=== PATIENT | male | born 1955 | race Caucasian/White ===

== ENCOUNTER → 2020-07-03 14:52 | Outpatient (CLI) | payer MEDICARE, SELFPAY ==
--- NOTE | 2020-07-03 15:15 | US_ITS ---
STUDY: RENAL ULTRASOUND - COMPLETE REASON FOR EXAM: Male, 65 years old. KIDNEY STONE TECHNIQUE: Ultrasound evaluation of the kidneys was performed with real-time and static gaona-scale imaging. COMPARISON: None. FINDINGS: RIGHT KIDNEY: Normal location of the right kidney, which is normal in size. The right kidney measures 11.5 x 4.6 x 6.0 cm. There is a normal cortex of the right kidney. The renal cortex measures 1.6 cm. There is no right renal mass or cyst. There are no right renal calculi. There is no right hydronephrosis. DISTAL RIGHT URETER: There is non-visualization of the distal right ureter. There is no demonstrated right ureterovesical junction calculus. There is no demonstrated right ureteral jet. LEFT KIDNEY: Normal location of the left kidney, which is normal in size. The left kidney is slightly lobular in contour. The left kidney measures 12.0 x 4.3 x 5.4 cm. There is a normal cortex of the left kidney. The renal cortex measures 1.5 cm. There is no left renal mass or cyst. There are no left renal calculi. There is no left hydronephrosis. DISTAL LEFT URETER: There is non-visualization of the distal left ureter. There is no demonstrated left ureterovesical junction calculus. There is no demonstrated left ureteral jet. BLADDER: The distended urinary bladder has a volume of 66 ml. There is a normal wall thickness of the distended urinary bladder. Bladder wall thickness is 3 mm. There is no demonstrated mass within the urinary bladder. There are no demonstrated bladder calculi. US/Kidney and Bladder IMPRESSION: Normal ultrasound of the kidneys and urinary bladder. Electronically Signed: Melvin Lopez MD at 17:27 EDT , Service support ,
--- NOTE | 2020-07-03 15:48 | RAD_ITS ---
STUDY: X-RAY - ABDOMEN/PELVIS REASON FOR EXAM: Male, 65 years old. h/o kidney stones -- right sided back pain TECHNIQUE: Two AP supine views of the abdomen and pelvis. COMPARISON: None. FINDINGS: Normal visualized lung bases. There is an unremarkable bowel gas pattern. There is no demonstrated free abdominal air. The visualized liver, spleen and kidneys are grossly normal in size and morphology. Normal soft tissue structures. There are mild degenerative changes of the thoracic spine. RAD/Abdomen Single View IMPRESSION: Mild degenerative changes of the visualized thoracic spine. There is no evidence of ileus or obstruction. No abnormal intra-abdominal or intrapelvic calcifications are noted. Electronically Signed: Melvin Lopez MD at 21:22 EDT , Service support ,
== END ==
DX: N20.0 Calculus of kidney (principal)
CPT/HCPCS: 74018; 76770

== ENCOUNTER 2022-03-27 09:35 | Outpatient (CLI) | payer MEDICARE, SELFPAY ==
[2022-03-27 10:22] LABS: Absolute Lymphocyte Count 2.22 X10^3/uL (0.83-4.51); Absolute Neutrophil Count 3.8 X10^3/uL (2.0-7.7); Basophil# 0.06 X10^3/uL; Basophil% 0.8 % (0-1); Eosinophil# 0.46 X10^3/uL; Eosinophils% 6.5 % (0-5); Hematocrit 45.4 % (40-54); Lymphocyte # 2.22 X10^3/ul (0.83-4.51); Lymphocyte % 31.4 % (19-41); Mean Corpuscular Hgb 31.1 pg (27.0-32.0); Mean Corpuscular Volume 94.2 fL (80-94); Mean Platelet Vol. 11.5 fl (6.2-12.0); Monocyte# 0.51 X10^3/uL; Monocyte% 7.2 % (0-10); NRBC Flagged by Analyzer 0 % (0-5); Neutrophil # 3.79 X10^3/uL (2.7-7.7); Neutrophil % 53.8 % (47-70); Platelet Count 229 K/mm3 (150-450); RBC Distribution Width CV 12.9 % (11.6-14.6); RBC Distribution Width SD 44.4 fl (35.1-43.9); Red Blood Count 4.82 M/mm3 (4.6-6.2); White Blood Count 7.1 K/mm3 (4.4-11.0)
[2022-03-27 11:00] LABS: AST(SGOT) 18 U/L (15-37); Alanine Aminotransfer ALT/SGPT 28 U/L (16-61); Albumin, Serum 3.3 g/dL (3.2-5.0); Alkaline Phosphatase 79 U/L (45-117); Anion Gap 5 (5-15); BUN 9 mg/dL (7-18); BUN/Creat Ratio 8.9 RATIO (10-20); Calcium,Total 8.9 mg/dL (8.5-10.1); Chloride 110 mmol/L (98-107); Cholesterol 212 mg/dL (200); Creatinine, Serum 1.01 mg/dL (0.70-1.30); EST Glomerular Filtration Rate 78 mL/min (>60); Est Glom Filt Rate - Afr Amer 94 mL/min (>60); Globulin 3.4 g/dL (2.2-4.2); Glucose 97 mg/dL (74-106); High Density Lipoprotein 52 mg/dL; Potassium 3.8 mmol/L (3.5-5.1); Protein, Total 6.7 g/dL (6.4-8.2); Sodium Level 141 mmol/L (136-145); Thyroid Stim Hormone (TSH) 3.56 uIU/mL (0.358-3.74); Triglycerides 122 mg/dL; Very Low Density Lipoprotein 24 mg/dL (5-40)
[2022-03-27 11:30] LABS: Vitamin D,25 Hydroxy 26.6 ng/mL
== END 2022-03-27 23:59 | disposition home or self-care (01) ==
LOC: MFPLAB 09:36
PROVIDERS: PCP Family Medicine; Referring Provider Family Medicine; Visit Provider Family Medicine
DX: Z00.00 Encounter for general adult medical examination without abnormal findings (principal); E55.9 Vitamin D deficiency, unspecified; N20.0 Calculus of kidney; Z12.5 Encounter for screening for malignant neoplasm of prostate
CPT/HCPCS: 36415; 80053; 80061; 82306; 84153; 84443; 84550; 85025; G0103

== ENCOUNTER → 2022-04-15 | Outpatient (CLI) | payer MEDICARE, SELFPAY ==
--- NOTE | 2022-04-15 12:26 | CT_ITS ---
STUDY: CT ABDOMEN AND PELVIS WITHOUT CONTRAST REASON FOR EXAM: Male, 67 years old. DIVERTICULITIS RADIATION DOSAGE (If Supplied By Facility): CTDIvol = ( 14.39 ) mGy, DLP = ( 751.59 ) mGycm TECHNIQUE: Transaxial images were obtained from the dome of the diaphragm to the symphysis pubis with oral contrast, and without intravenous contrast. Sagittal and coronal images were reconstructed. Individualized dose optimization techniques were used for this CT. COMPARISON: None. FINDINGS: The visualized lung bases are unremarkable. The visualized portions of the heart are within normal limits. Multiple hepatic cysts. No required imaging follow-up needed given high likelihood of benign nature. Diffuse hepatic steatosis. There are multiple gallstones. Normal spleen. Normal pancreas. Normal bilateral adrenal glands. Simple right renal cysts. No required imaging follow-up needed given high likelihood of benign nature. Left parapelvic renal cyst (benign). No hydronephrosis. Normal visualized stomach. Normal small intestine. There is diverticulosis, with thickening of the proximal sigmoid colon wall, and pericolonic inflammation changes consistent with acute diverticulitis. The appendix is visualized and appears normal. There is diffuse atherosclerotic calcification of the abdominal aorta, without a demonstrated aneurysm. Splenic artery aneurysm with peripheral calcification measures 1.5 cm on image 44 of series 2. Normal inferior vena cava. Normal retroperitoneum. Normal urinary bladder. There are prostatic calcifications. There is a small umbilical hernia containing fat. There are diffuse degenerative changes of the visualized lumbar spine. CT/Abdomen/Pelvis without Cont IMPRESSION: 1. Acute diverticulitis of the proximal sigmoid colon. No pneumoperitoneum or focal abscess. 2. 1.5 cm splenic artery aneurysm with peripheral calcification. Limited detail given lack of IV contrast. Spontaneous rupture for aneurysms less than 2 cm rare. Consider one-year follow-up if no risk factors, according to current guidelines. Electronically Signed: Juan Luis Berkowitz MD ([place]) at 14:49 EDT Reading Location ID and State: , Service support ,
== END | disposition home or self-care (01) ==
PROVIDERS: PCP Family Medicine; Referring Provider Family Medicine; Visit Provider Family Medicine
DX: K57.92 Diverticulitis of intestine, part unspecified, without perforation or abscess without bleeding (principal)
CPT/HCPCS: 36415; 74176; 80053; 85025

== ENCOUNTER → 2022-04-15 | Outpatient (CLI) | payer MEDICARE, SELFPAY ==
[2022-04-15 15:31] LABS: Absolute Lymphocyte Count 2.56 X10^3/uL (0.83-4.51); Absolute Neutrophil Count 4.3 X10^3/uL (2.0-7.7); Basophil# 0.07 X10^3/uL; Basophil% 0.9 % (0-1); Eosinophil# 0.44 X10^3/uL; Eosinophils% 5.5 % (0-5); Hemoglobin 15.3 g/dL (13.0-16.5); Lymphocyte # 2.56 X10^3/ul (0.83-4.51); Lymphocyte % 31.8 % (19-41); Mean Corp Hgb Conc 32.6 g/dL (32-36); Mean Corpuscular Hgb 31.2 pg (27.0-32.0); Mean Corpuscular Volume 95.7 fL (80-94); Mean Platelet Vol. 11.9 fl (6.2-12.0); Monocyte# 0.59 X10^3/uL; Monocyte% 7.3 % (0-10); NRBC Flagged by Analyzer 0 % (0-5); Neutrophil # 4.34 X10^3/uL (2.7-7.7); Platelet Count 263 K/mm3 (150-450); RBC Distribution Width CV 12.8 % (11.6-14.6); RBC Distribution Width SD 45.7 fl (35.1-43.9); Red Blood Count 4.91 M/mm3 (4.6-6.2)
[2022-04-15 15:57] LABS: Albumin, Serum 3.5 g/dL (3.2-5.0); BUN 11 mg/dL (7-18); BUN/Creat Ratio 10.3 RATIO (10-20); Creatinine, Serum 1.07 mg/dL (0.70-1.30); EST Glomerular Filtration Rate 73 mL/min (>60); Est Glom Filt Rate - Afr Amer 88 mL/min (>60); Glucose 102 mg/dL (74-106); Protein, Total 7.4 g/dL (6.4-8.2)
[2022-04-15 15:58] LABS: ALB/GLOB Ratio 0.9 RATIO (0.9-2.4); AST(SGOT) 15 U/L (15-37); Alanine Aminotransfer ALT/SGPT 22 U/L (16-61); Alkaline Phosphatase 72 U/L (45-117); Anion Gap 5 (5-15); Calcium,Total 9.2 mg/dL (8.5-10.1); Chloride 109 mmol/L (98-107); Globulin 3.9 g/dL (2.2-4.2); Potassium 3.9 mmol/L (3.5-5.1); Sodium Level 140 mmol/L (136-145)
== END | disposition home or self-care (01) ==
LOC: MFPLAB 13:43
PROVIDERS: PCP Family Medicine; Referring Provider Family Medicine; Visit Provider Family Medicine
DX: K57.92 Diverticulitis of intestine, part unspecified, without perforation or abscess without bleeding (principal)
CPT/HCPCS: 36415; 80053; 85025

== ENCOUNTER → 2022-06-10 | Outpatient (CLI) | payer MEDICARE, SELFPAY ==
[2022-06-10 15:23] LABS: Absolute Lymphocyte Count 2.08 X10^3/uL (0.83-4.51); Absolute Neutrophil Count 5.7 X10^3/uL (2.0-7.7); Basophil# 0.05 X10^3/uL; Basophil% 0.6 % (0-1); Eosinophil# 0.26 X10^3/uL; Hematocrit 45.6 % (40-54); Hemoglobin 14.9 g/dL (13.0-16.5); Lymphocyte # 2.08 X10^3/ul (0.83-4.51); Lymphocyte % 23.8 % (19-41); Mean Corp Hgb Conc 32.7 g/dL (32-36); Mean Corpuscular Hgb 30.7 pg (27.0-32.0); Mean Corpuscular Volume 93.8 fL (80-94); Mean Platelet Vol. 11.5 fl (6.2-12.0); Monocyte# 0.64 X10^3/uL; Monocyte% 7.3 % (0-10); NRBC Flagged by Analyzer 0 % (0-5); Neutrophil % 65.1 % (47-70); Platelet Count 212 K/mm3 (150-450); RBC Distribution Width CV 12.9 % (11.6-14.6); RBC Distribution Width SD 44.3 fl (35.1-43.9); Red Blood Count 4.86 M/mm3 (4.6-6.2); White Blood Count 8.8 K/mm3 (4.4-11.0)
[2022-06-10 15:53] LABS: ALB/GLOB Ratio 1.1 RATIO (0.9-2.4); AST(SGOT) 21 U/L (15-37); Alanine Aminotransfer ALT/SGPT 29 U/L (16-61); Albumin, Serum 3.4 g/dL (3.2-5.0); Alkaline Phosphatase 72 U/L (45-117); Anion Gap 7 (5-15); BUN 9 mg/dL (7-18); BUN/Creat Ratio 8.5 RATIO (10-20); Calcium,Total 8.9 mg/dL (8.5-10.1); Chloride 108 mmol/L (98-107); Cholesterol 210 mg/dL (200); Creatinine, Serum 1.06 mg/dL (0.70-1.30); EST Glomerular Filtration Rate 74 mL/min (>60); Est Glom Filt Rate - Afr Amer 89 mL/min (>60); Globulin 3.2 g/dL (2.2-4.2); Glucose 97 mg/dL (74-106); High Density Lipoprotein 49 mg/dL; Potassium 4.3 mmol/L (3.5-5.1); Protein, Total 6.6 g/dL (6.4-8.2); Sodium Level 141 mmol/L (136-145); Triglycerides 185 mg/dL; Very Low Density Lipoprotein 37 mg/dL (5-40)
[2022-06-10 16:04] LABS: Vitamin D,25 Hydroxy 38.9 ng/mL
== END | disposition home or self-care (01) ==
LOC: MFPLAB 13:55
PROVIDERS: PCP Family Medicine; Visit Provider Family Medicine
DX: E78.5 Hyperlipidemia, unspecified (principal); E55.9 Vitamin D deficiency, unspecified
CPT/HCPCS: 36415; 80053; 80061; 82306; 85025

== ENCOUNTER 2022-12-18 09:51 | Outpatient (CLI) | payer MEDICARE, SELFPAY ==
[2022-12-18 12:12] LABS: Absolute Lymphocyte Count 2.26 X10^3/uL (0.83-4.51); Absolute Neutrophil Count 4.5 X10^3/uL (2.0-7.7); Basophil# 0.07 X10^3/uL; Basophil% 0.9 % (0-1); Eosinophil# 0.29 X10^3/uL; Eosinophils% 3.8 % (0-5); Hematocrit 45.8 % (40-54); Hemoglobin 15.1 g/dL (13.0-16.5); Lymphocyte # 2.26 X10^3/ul (0.83-4.51); Lymphocyte % 29.3 % (19-41); Mean Corpuscular Hgb 31.1 pg (27.0-32.0); Mean Corpuscular Volume 94.4 fL (80-94); Mean Platelet Vol. 12.1 fl (6.2-12.0); Monocyte# 0.61 X10^3/uL; Monocyte% 7.9 % (0-10); NRBC Flagged by Analyzer 0 % (0-5); Neutrophil # 4.47 X10^3/uL (2.7-7.7); Neutrophil % 57.8 % (47-70); Platelet Count 204 K/mm3 (150-450); RBC Distribution Width CV 12.9 % (11.6-14.6); RBC Distribution Width SD 44.5 fl (35.1-43.9); Red Blood Count 4.85 M/mm3 (4.6-6.2); White Blood Count 7.7 K/mm3 (4.4-11.0)
[2022-12-18 14:03] LABS: ALB/GLOB Ratio 1.2 RATIO (0.9-2.4); AST(SGOT) 18 U/L (15-37); Alanine Aminotransfer ALT/SGPT 29 U/L (16-61); Albumin, Serum 3.5 g/dL (3.2-5.0); Alkaline Phosphatase 73 U/L (45-117); Anion Gap 9 (5-15); BUN 11 mg/dL (7-18); BUN/Creat Ratio 10.9 RATIO (10-20); Chloride 107 mmol/L (98-107); Cholesterol 194 mg/dL (200); Creatinine, Serum 1.01 mg/dL (0.70-1.30); EST Glomerular Filtration Rate 78 mL/min (>60); Est Glom Filt Rate - Afr Amer 94 mL/min (>60); Globulin 2.9 g/dL (2.2-4.2); Glucose 116 mg/dL (74-106); High Density Lipoprotein 57 mg/dL; Potassium 3.9 mmol/L (3.5-5.1); Protein, Total 6.4 g/dL (6.4-8.2); Sodium Level 141 mmol/L (136-145); Triglycerides 153 mg/dL; Very Low Density Lipoprotein 31 mg/dL (5-40)
[2022-12-19 12:12] LABS: Hemoglobin A1c 5.2 % (3.8-5.6)
== END 2022-12-18 23:59 | disposition home or self-care (01) ==
LOC: MFPLAB 09:55
PROVIDERS: PCP Family Medicine; Referring Provider Family Medicine; Visit Provider Family Medicine
DX: R73.09 Other abnormal glucose (principal); E78.5 Hyperlipidemia, unspecified; E55.9 Vitamin D deficiency, unspecified
CPT/HCPCS: 36415; 80053; 80061; 82306; 83036; 85025

== ENCOUNTER 2023-08-31 14:29 | Emergency (ER) | payer MEDICARE, SELFPAY ==
[2023-08-31 14:30] VITALS: BP 140/77; PULSE 66; RESP 14; TEMP 36.4; O2SAT 98; BMI 29.8
--- NOTE | 2023-08-31 14:41 | US_ITS ---
EXAM: US ABDOMEN LIMITED, RIGHT UPPER QUADRANT CLINICAL INDICATION: PAIN TECHNIQUE: Real-time ultrasound of the right upper quadrant with image documentation. COMPARISON: CT abdomen and pelvis on the same date. FINDINGS: LIVER: Diffuse increased echogenicity of the liver consistent with fatty infiltration. Multiple hepatic cysts are again identified for which no follow-up would be indicated. No solid or suspicious hepatic lesions are identified. No intrahepatic biliary ductal dilation. GALLBLADDER: Multiple gallstones are present. No pericholecystic fluid or significant gallbladder wall thickening giving its contracted state. Negative sonographic Biggs sign. COMMON BILE DUCT: Normal as visualized. The proximal common bile duct is within normal limits for the patient''s age. PANCREAS: Partially obscured pancreas without discrete abnormality identified. RIGHT KIDNEY: No significant abnormality. There is no hydronephrosis. No shadowing calculus. No focal lesion or perinephric collection is demonstrated. US/Gallbladder IMPRESSION: 1. Fatty liver. 2. Cholelithiasis. No discrete evidence of cholecystitis. Electronically Signed: Nolberto Cagle DO at 17:01 EDT ,
--- NOTE | 2023-08-31 14:41 | EKG12_ITS ---
Test Reason : CP Blood Pressure : / mmHG Vent. Rate : 067 BPM Atrial Rate : 067 BPM P-R Int : 152 ms QRS Dur : 088 ms QT Int : 378 ms P-R-T Axes : 035 016 003 degrees QTc Int : 399 ms Normal sinus rhythm Normal ECG Confirmed by KULDEEP RODRIGUEZ, JENN ([id number]), communications editor RADHIKA MAYERS ([id number]) on 09/02/2023 10:44:20 AM Referred By: Confirmed By:JENN LIGHT MD
--- NOTE | 2023-08-31 14:43 | EDS_ITS ---
HPI <TE Lezama - Last Filed: 08/31/23 17:14> History of Present Illness Chief Complaint: Chest Pain Narrative Narrative: Patient is a 68-year-old male with no significant medical history does have history of a COVID with respiratory failure who presents to the emergency department for epigastric, right upper quadrant pain. Patient states the pain came on all of a sudden after drinking V8 juice. Patient states that last evening he developed pain underneath his left shoulder blade, thought it was a muscle. Patient denies any cardiac surgery, denies any shortness of breath. Patient states he does not feel nauseous, no vomiting. No blood in stool or vomit. Patient [place] any recent trips, denies any history of blood clots in the legs or lungs. PFSH <TE Lezama - Last Filed: 08/31/23 17:14> [facility] Medical History (Updated 08/31/23 @ 17:14 by TE Lezama) Asthma Back pain Diastasis recti GERD (gastroesophageal reflux disease) Hemorrhoid Renal calculi Screening for malignant neoplasm of intestine Umbilical hernia Home Medications albuterol sulfate 90 mcg/actuation breath activated powder inhaler 2 inh inhalation Q6H PRN 07/26/20 [History Last Taken Unknown] clindamycin HCl 150 mg capsule 150 mg PO TID PRN 07/26/20 [History Last Taken Unknown] cyclobenzaprine 10 mg tablet 10 mg PO TID PRN 07/26/20 [History Last Taken Unknown] esomeprazole magnesium 20 mg capsule,delayed release 20 mg PO DAILY 07/26/20 [History Last Taken Unknown] meloxicam 7.5 mg tablet 7.5 mg PO DAILY 07/26/20 [History Last Taken Unknown] ropinirole 0.25 mg tablet 0.25 mg PO DAILY 07/26/20 [History Last Taken Unknown] omeprazole 40 mg capsule,delayed release 40 mg PO DAILY #30 caps 08/31/23 [Rx Last Taken Unknown] Allergy/AdvReac Type Severity Reaction Status Date / Time ciprofloxacin Allergy Intermediate rash, leg Verified 08/31/23 14:30 swelling povidone-iodine Allergy Intermediate rash, leg Verified 08/31/23 14:30 swelling Iodinated Contrast Media AdvReac Severe Swelling Verified 08/31/23 14:30 Family History (Updated 07/26/20 @ 10:16 by Iman Santiago) Father Heart disease Mother CVA (cerebral vascular accident) Surgical History History of colonoscopy (~2008) History of lithotripsy history of peripheral stent placement Social History (Updated 07/26/20 @ 10:[address] Max Dennis MD) Smoking Status: Never smoker ROS <TE Lezama - Last Filed: 08/31/23 17:14> ROS ED ROS Narrative Constitutional: Negative for fever, chills, weight loss, weakness Eyes: Negative for vision loss, vision change, double vision ENT: Negative for any sore throat, ear pain, congestion Cardiovascular: Negative for any tightness, palpitations. Positive for lower chest, epigastric pain Respiratory: Negative for any cough, sputum production, hemoptysis, dyspnea, dyspnea on exertion, orthopnea Gastrointestinal: Negative for any nausea, vomiting, diarrhea, constipation, blood in stool, blood in vomit. Positive for right upper quadrant abdominal pain : Negative for any urinary frequency, dysuria, retention, blood in urine Muscle skeletal: Negative for any muscle joint pain, stiffness, myalgias, arthralgias, neck pain, back pain. Positive for pain behind the left shoulder blade last evening Neurological: Negative for any headache, syncope, numbness or tingling, dizziness Skin: Negative for any rashes, lumps, itching, abrasions, lacerations Psychiatric: Negative for any depression, anxiety, stress, suicidal ideation, homicidal ideation Hematologic: Negative for any easy bruising, excessive bruising, easy bleeding Allergies: Negative for any eczema, hives, rash EXAM <TE Lezama - Last Filed: 08/31/23 17:14> Physical Exam Narrative Exam Narrative: Vital signs reviewed. HEET: Head normocephalic atraumatic, TMs clear bilaterally. Posterior pharynx is clear, moist mucous membranes. Nares clear bilaterally. Neck: Supple with no lymphadenopathy or tenderness. No signs of meningismus, negative jolt sign. Cardiac: Regular rate and rhythm no murmurs gallops or rubs, equal peripheral pulses bilaterally. Respiratory: Lungs clear to auscultation bilaterally. No chest tenderness. Abdomen: Soft, nondistended. No abdominal bruit or pulsatile masses. No hepatosplenomegaly. Positive for right upper quadrant pain, positive Biggs sign. Extremities: No peripheral edema, no signs of gross trauma or deformity. Active full range of motion of all extremities. Neuro: Cranial nerves II through XII intact, no focal neurological deficits. Skin: Clean dry and intact with no rash, purpura, petechiae, vesicles or pustules. Backs/flank: No CVA tenderness, no midline spinal tenderness, no deformity. Psych: Normal mood and affect. No SI, HI or acute psychosis. Const Vital Signs: 08/31/23 14:30 08/31/23 17:38 Temperature 97.6 F L Temperature Source Temporal Pulse Rate 66 72 Respiratory Rate 14 15 Blood Pressure 140/77 H 131/69 H Blood Pressure Mean 98 89 Pulse Ox 98 96 Oxygen Delivery Method Room Air Positive well nourished and well developed General Appearance ED: well developed <Dr. Ronald Buenrostro DO - Last Filed: 08/31/23 18:10> Physical Exam Const Vital Signs: 08/31/23 14:30 08/31/23 17:38 Temperature 97.6 F L Temperature Source Temporal Pulse Rate 66 72 Respiratory Rate 14 15 Blood Pressure 140/77 H 131/69 H Blood Pressure Mean 98 89 Pulse Ox 98 96 Oxygen Delivery Method Room Air MDM <TE Lezama - Last Filed: 08/31/23 17:14> MDM Lab Data Labs: Laboratory Results - last 24 hr 08/31/23 08/31/23 14:45 17:03 WBC 10.8 RBC 4.75 Hgb 14.7 Hct 45.6 MCV 96.0 H MCH 30.9 MCHC 32.2 RDW Std Deviation 46.3 H RDW Coeff of Kaylie 13.0 Plt Count 223 MPV 11.1 Immature Gran % (Auto) 0.400 Neut % (Auto) 68.2 Lymph % (Auto) 20.9 Cross % (Auto) 7.5 Eos % (Auto) 2.4 Baso % (Auto) 0.6 Absolute Neuts (auto) 7.4 Absolute Lymphs (auto) 2.26 Nucleated RBC % 0 Sodium 141 Potassium 4.2 Chloride 111 H Carbon Dioxide 25.0 Anion Gap 5 BUN 11 Creatinine 1.05 Estim Creat Clear Calc 61.20 Est GFR (MDRD) Af Amer 90 Est GFR (MDRD) Non-Af 74 BUN/Creatinine Ratio 10.5 Glucose 94 Calcium 8.8 Total Bilirubin 0.80 AST 44 H ALT 43 Alkaline Phosphatase 77 Troponin I High Sens 7 7 Total Protein 6.4 Albumin 3.2 Globulin 3.2 Albumin/Globulin Ratio 1.0 Lipase 30 Radiography Diagnostic Testing: Clinical Impression(s) from Imaging Studies Gallbladder Ultrasound 08/31/23 14:41 IMPRESSION: 1. Fatty liver. 2. Cholelithiasis. No discrete evidence of cholecystitis. Electronically Signed: Nolberto Cagle DO at 17:01 EDT , Chest X-Ray 08/31/23 14:58 IMPRESSION: No acute thoracic pathology. Electronically Signed: Randy Morgan MD at 15:42 EDT , Abdomen/Pelvis CT 08/31/23 16:10 IMPRESSION: 1. Peripherally calcified splenic artery aneurysm measuring approximately 1.3 cm. ACR White Paper guidelines (Uri, et al. JACR 2013; 10(10):789-94) suggest annual abdominal CT or MR follow-up. 2. Cholelithiasis with contracted gallbladder. No secondary signs of cholecystitis. 3. Fatty infiltration of the liver. 4. Diffuse colonic diverticulosis without discrete evidence of acute diverticulitis. Electronically Signed: Nolberto Cagle DO at 16:34 EDT , EKG Normal sinus rhythm: Attestation: I personally reviewed and interpreted this EKG as follows: Interpretation: Sinus Rhythm Comments: Sinus rhythm, rate 67 bpm, MD 182 ms, QRS duration 88 ms, no acute ST elevation, no acute infarct noted. Treatment and Re-Evaluation :: Patient appears to be in no obvious distress, vital signs are stable. Patient presents to the emergency department with complaints of pain to the epigastric area, right upper quadrant. Secondary to positive Biggs sign, patient received a right upper quadrant ultrasound. Patient secondary to the age of 68, will receive cardiac work-up including 2 troponins. IV fluids, GI cocktail to see if this will help the patient's epigastric pain. Differential diagnosis includes ACS, ND, acute cholecystitis, choledocholithiasis. Patient's gallbladder ultrasound showed fatty liver, cholelithiasis, no discrete evidence of cholecystitis. CT scan of the abdomen pelvis showed a peripheral calcified splenic artery aneurysm measuring proxy 1.3 cm. Cholelithiasis with a contracted gallbladder. No signs of cholecystitis. Fatty filtration liver. D iverticulosis without any evidence of diverticulitis. Patient's laboratory values were grossly unremarkable, patient initial troponin was 7, repeat was also negative. At this time, patient did have relief of symptoms with GI cocktail. Patient replaced on a omeprazole for 30 days, instructed to stay away from spicy foods. Patient is happy with the plan of care, he will follow-up outpatient patient stable for discharge ED attending note: I evaluated the patient in conjunction with the JACE. I agree with his/her statements and above findings. I have personally performed a face to face ass essment of the patient and have reviewed the JACE Note. I performed a substantive portion of the visit including all aspects of the following. I personally saw the patient performed chart review, physical exam, reviewed labs, imaging (if obtained), and formulated a treatment and management plan. Brief history: 68 M here with CP, epigastric abdominal pain. The patient denies recent surgery in the last 4 weeks or immobilization in the last 3 days, denies previous diagnosis of DVT or PE, hemoptysis, unilateral leg swelling or malignancy with treatment the last 6 months or palliative. No estrogen use noted. Patient denies sudden onset of pain, no tearing sensation, no migratory symptoms, no new numbness, weakness or loss of sensation. Patient denies family history or personal history of Connective tissue disorders (Marfan's Syndrome, An Danlos etc). Exam: Nursing triage notes reviewed, Vital signs reviewed Constitutional: please see mdm HENT: MMM Eyes: Pupils equal round and reactive to light, Extraocular muscles intact Neck: No stridor, no JVD, full neck ROM Lungs: Clear to auscultation, No wheezing or rales. No increased work of breathing, no conversational dyspnea, no accessory muscle use, no nasal flaring. No respiratory distress noted Heart: Regular rate and rhythm, No murmurs, No rubs and No gallops, 2+ distal pulses (radial, femoral, posterior tibial) in all extremities Abdomen: Soft, LLQ TTP on my exam. No rigidity, rebound or guarding, no obvious peritoneal signs, no palpable pulsatile abdominal masses, no auscultated abdominal bruit : No CVAT Extremities: No edema Neuro: No focal neurological deficits, cranial nerves II through XII intact, 5/5 strength in all extremities. Intact sensation to light touch in all extremities, 2+ reflexes bilateral patella dens. Normal gait. No ataxia. Skin: No rash or lesions noted MDM/plan: Chief Complaint: CP, Epigastric abdominal pain. External records reviewed: No recent Cath, stress Factors affecting care: GERD Social determinants of health: Elderly History obtained from others: Consults: none Shared decision making: I will have a discussion with the patient and or visitors regarding ri sk/benefits of further testing or admission. They will be made aware of of the risk/benefits inherent in this decision they will be given the opportunity to voice understanding. [facility] narrative: Patient is hemodynamically stable, afebrile, nontoxic-appearing. Concerns for ACS however the patient nonischemic EKG. will relate to high-sensitivity troponins. More concerned about intra-abdominal pathology including gallbladder pathology. I considered the following differential diagnosis: Acute cholecystitis, hepatobiliary obstruction, GERD, ACS, pneumonia, PE, dissection, anemia, peptic ulcer disease, diverticulitis. Based abdominal exam was not consistent with an acute surgical process. His x- ray showed no evidence of intra-abdominal free air. Will obtain US, CT and labs. Will dispo based on results. <Dr. Ronald Buenrostro, DO - Last Filed: 08/31/23 18:10> [facility] Lab Data Labs: Laboratory Results - last 24 hr 08/31/23 08/31/23 14:45 17:03 WBC 10.8 RBC 4.75 Hgb 14.7 Hct 45.6 MCV 96.0 H MCH 30.9 MCHC 32.2 RDW Std Deviation 46.3 H RDW Coeff of Kaylie 13.0 Plt Count 223 MPV 11.1 Immature Gran % (Auto) 0.400 Neut % (Auto) 68.2 Lymph % (Auto) 20.9 Cross % (Auto) 7.5 Eos % (Auto) 2.4 Baso % (Auto) 0.6 Absolute Neuts (auto) 7.4 Absolute Lymphs (auto) 2.26 Nucleated RBC % 0 Sodium 141 Potassium 4.2 Chloride 111 H Carbon Dioxide 25.0 Anion Gap 5 BUN 11 Creatinine 1.05 Estim Creat Clear Calc 61.20 Est GFR (MDRD) Af Amer 90 Est GFR (MDRD) Non-Af 74 BUN/Creatinine Ratio 10.5 Glucose 94 Calcium 8.8 Total Bilirubin 0.80 AST 44 H ALT 43 Alkaline Phosphatase 77 Troponin I High Sens 7 7 Total Protein 6.4 Albumin 3.2 Globulin 3.2 Albumin/Globulin Ratio 1.0 Lipase 30 Radiography Diagnostic Testing: Clinical Impression(s) from Imaging Studies Gallbladder Ultrasound 08/31/23 14:41 IMPRESSION: 1. Fatty liver. 2. Cholelithiasis. No discrete evidence of cholecystitis. Electronically Signed: Nolberto Cagle DO at 17:01 EDT , Chest X-Ray 08/31/23 14:58 IMPRESSION: No acute thoracic pathology. Electronically Signed: Randy Morgan MD at 15:42 EDT , Abdomen/Pelvis CT 08/31/23 16:10 IMPRESSION: 1. Peripherally calcified splenic artery aneurysm measuring approximately 1.3 cm. ACR White Paper guidelines (Uri, et al. JACR 2013; 10(10):789-90) suggest annual abdominal CT or MR follow-up. 2. Cholelithiasis with contracted gallbladder. No secondary signs of cholecystitis. 3. Fatty infiltration of the liver. 4. Diffuse colonic diverticulosis without discrete evidence of acute diverticulitis. Electronically Signed: Nolberto Cagle DO at 16:34 EDT , Treatment and Re-Evaluation :: Patient appears to be in no obvious distress, vital signs are stable. Patient presents to the emergency department with complaints of pain to the epigastric area, right upper quadrant. Secondary to positive Biggs sign, patient received a right upper quadrant ultrasound. Patient secondary to the age of 68, will receive cardiac work-up including 2 troponins. IV fluids, GI cocktail to see if this will help the patient's epigastric pain. Differential diagnosis includes ACS, ND, acute cholecystitis, choledocholithiasis. ED attending note: I evaluated the patient in conjunction with the JACE. I agree with his/her statements and above findings. I have personally performed a face to face assessment of the patient and have reviewed the JACE Note. I performed a substantive portion of the visit including all aspects of the following. I personally saw the patient performed chart review, physical exam, reviewed labs, imaging (if obtained), and formulated a treatment and management plan. Brief history: 68 M here with CP, epigastric abdominal pain. The patient denies recent surgery in the last 4 weeks or immobilization in the last 3 days, denies previous diagnosis of DVT or PE, hemoptysis, unilateral leg swelling or malignancy with treatment the last 6 months or palliative. No estrogen use noted. Patient denies sudden onset of pain, no tearing sensation, no migratory symptoms, no new numbness, weakness or loss of sensation. Patient denies family history or personal history of Connective tissue disorders (Marfan's Syndrome, An Danlos etc). Exam: Nursing triage notes reviewed, Vital signs reviewed Constitutional: please see mdm HENT: MMM Eyes: Pupils equal round and reactive to light, Extraocular muscles intact Neck: No stridor, no JVD, full neck ROM Lungs: Clear to auscultation, No wheezing or rales. No increased work of breathing, no conversational dyspnea, no accessory muscle use, no nasal flaring. No respiratory distress noted Heart: Regular rate and rhythm, No murmurs, No rubs and No gallops, 2+ distal pulses (radial, femoral, posterior tibial) in all extremities Abdomen: Soft, LLQ TTP on my exam. No rigidity, rebound or guarding, no obvious peritoneal signs, no palpable pulsatile abdominal masses, no auscultated abdominal bruit : No CVAT Extremities: No edema Neuro: No focal neurological deficits, cranial nerves II through XII intact, 5/5 strength in all extremities. Intact sensation to light touch in all extremities, 2+ reflexes bilateral patella dens. Normal gait. No ataxia. Skin: No rash or lesions noted MDM/plan: Chief Complaint: CP, Epigastric abdominal pain. External records reviewed: No recent Cath, stress Factors affecting care: GERD Social determinants of health: Elderly History obtained from others: Consults: none Shared decision making: I will have a discussion with the patient and or visitors regarding risk/benefits of further testing or admission. They will be made aware of of the risk/benefits inherent in this decision they will be given the opportunity to voice understanding. MDM narrative: Patient is hemodynamically stable, afebrile, nontoxic-appearing. Concerns for ACS however the patient nonischemic EKG. will relate to high-sensitivity troponins. More concerned about intra-abdominal pathology including gallbladder pathology. I considered the following differential diagnosis: Acute cholecystitis, hepatobiliary obstruction, GERD, ACS, pneumonia, PE, dissection, anemia, peptic ulcer disease, diverticulitis. Based abdominal exam was not consistent with an acute surgical process. His x- ray showed no evidence of intra-abdominal free air. Will obtain US, CT and labs. Will dispo based on results. Discharge Plan Triage Chief Complaint: Chest Pain ED Midlevel Provider: Rusty Lewis ED Provider: Ronald Buenrostro Dx/Rx/DC Orders Clinical Impression: Stomach pain, Acute epigastric pain Instructions: ED Epigastric Pain Uncertain Cause Prescriptions: New omeprazole 40 mg capsule,delayed release(DR/EC) 40 mg PO DAILY Qty: 30 1RF No Action esomeprazole magnesium 20 mg capsule,delayed release(DR/EC) 20 mg PO DAILY meloxicam 7.5 mg tablet 7.5 mg PO DAILY cyclobenzaprine 10 mg tablet 10 mg PO TID PRN ropinirole 0.25 mg tablet 0.25 mg PO DAILY albuterol sulfate 90 mcg/actuation aerosol powdr breath activated 2 inh INHALATION Q6H PRN clindamycin HCl 150 mg capsule 150 mg PO TID PRN Primary Care Provider: Sigiferdo Puentes Referrals: Sigifredo Puentes MD [Primary Care Provider] - Disposition Disposition: Home, Self Care Discharge Date/Time: 08/31/23 17:39
[2023-08-31 14:51] LABS: Absolute Lymphocyte Count 2.26 X10^3/uL (0.83-4.51); Absolute Neutrophil Count 7.4 X10^3/uL (2.0-7.7); Basophil# 0.06 X10^3/uL; Basophil% 0.6 % (0-1); Eosinophil# 0.26 X10^3/uL; Eosinophils% 2.4 % (0-5); Hematocrit 45.6 % (40-54); Hemoglobin 14.7 g/dL (13.0-16.5); Lymphocyte # 2.26 X10^3/ul (0.83-4.51); Lymphocyte % 20.9 % (19-41); Mean Corp Hgb Conc 32.2 g/dL (32-36); Mean Corpuscular Hgb 30.9 pg (27.0-32.0); Mean Platelet Vol. 11.1 fl (6.2-12.0); Monocyte# 0.81 X10^3/uL; Monocyte% 7.5 % (0-10); NRBC Flagged by Analyzer 0 % (0-5); Neutrophil # 7.39 X10^3/uL (2.7-7.7); Neutrophil % 68.2 % (47-70); Platelet Count 223 K/mm3 (150-450); RBC Distribution Width SD 46.3 fl (35.1-43.9); Red Blood Count 4.75 M/mm3 (4.6-6.2); White Blood Count 10.8 K/mm3 (4.4-11.0)
[2023-08-31] MEDS: 0.9% Normal Saline (1000mL) 1,000 ML 1000 ML IV (14:56)
[2023-08-31] MEDS: Mag Hydrox/Al Hydrox/Simeth 30 ML UDC PO (14:56)
--- NOTE | 2023-08-31 14:58 | RAD_ITS ---
STUDY: X-RAY CHEST REASON FOR EXAM: Male, 68 years old. Chest pain TECHNIQUE: Frontal view of the chest COMPARISON: None. FINDINGS: The lungs are clear. There are no pleural effusions. There is no pneumothorax. The heart is normal in size. The visualized osseous structures are within normal limits. RAD/Chest 1 View (Portable) IMPRESSION: No acute thoracic pathology. Electronically Signed: Randy Morgan MD at 15:42 EDT ,
[2023-08-31 15:17] LABS: AST(SGOT) 44 U/L (15-37); Alanine Aminotransfer ALT/SGPT 43 U/L (16-61); Albumin, Serum 3.2 g/dL (3.2-5.0); Alkaline Phosphatase 77 U/L (45-117); Anion Gap 5 (5-15); BUN 11 mg/dL (7-18); BUN/Creat Ratio 10.5 RATIO (10-20); Calcium,Total 8.8 mg/dL (8.5-10.1); Chloride 111 mmol/L (98-107); Creatinine, Serum 1.05 mg/dL (0.70-1.30); EST Glomerular Filtration Rate 74 mL/min (>60); Est Glom Filt Rate - Afr Amer 90 mL/min (>60); Globulin 3.2 g/dL (2.2-4.2); Glucose 94 mg/dL (74-106); Lipase 30 U/L (13-75); Potassium 4.2 mmol/L (3.5-5.1); Protein, Total 6.4 g/dL (6.4-8.2); Sodium Level 141 mmol/L (136-145); Troponin-I HS (w/2H Reflex) 7 pg/mL (3.0-78.0)
--- NOTE | 2023-08-31 16:10 | CT_ITS ---
EXAM: CT ABDOMEN AND PELVIS WITHOUT INTRAVENOUS CONTRAST CLINICAL INDICATION: LLQ pain hx of diverticulitis TECHNIQUE: Helically acquired images were obtained of the abdomen and pelvis without intravenous contrast. This CT exam was performed using one or more of the following dose reduction techniques: automated exposure control, adjustment of the mA and/or kV according to patient size, and/or use of iterative reconstruction technique. COMPARISON: CT abdomen and pelvis, 04/15/2022. FINDINGS: LOWER THORAX: Minimal likely atelectasis in the basilar lungs bilaterally. No cardiomegaly. No significant pericardial effusion. ABDOMEN: LIVER: Low-attenuation throughout the liver suggesting fatty infiltration. Unchanged cysts within the liver, the largest in the left hepatic lobe for which no follow-up is indicated. GALLBLADDER AND BILE DUCTS: Cholelithiasis with contracted gallbladder. No secondary signs of cholecystitis. No intra- or extrahepatic biliary ductal dilation. PANCREAS: No significant abnormality. No focal cystic mass. SPLEEN: No significant abnormality. Normal size without focal cystic or solid mass. ADRENALS: No significant abnormality. No nodules. KIDNEYS AND URETERS: Left-sided peripelvic renal cysts for which no follow-up is indicated. Right upper pole cortical renal cysts for which no follow-up is indicated. No hydronephrosis. STOMACH AND BOWEL: Diffuse colonic diverticulosis without discrete evidence of acute diverticulitis. No stomach or bowel distention. PELVIS: APPENDIX: Normal appendix in the right lower quadrant. BLADDER: No significant abnormality. REPRODUCTIVE: Normal as visualized. No mass. ABDOMEN and PELVIS: INTRAPERITONEAL SPACE: No significant abnormality. No ascites or other fluid collection. No free air. BONES/JOINTS: Degenerative changes in the visualized axial and appendicular skeleton. No suspicious lytic or blastic abnormality. SOFT TISSUES: Fat-containing umbilical hernia. VASCULATURE: Peripherally calcified splenic artery aneurysm measuring approximately 1.3 cm. Atherosclerosis of the aorta and its branch vessels. LYMPH NODES: No significant abnormality. No enlarged lymph nodes. CT/Abdomen/Pelvis without Cont IMPRESSION: 1. Peripherally calcified splenic artery aneurysm measuring approximately 1.3 cm. ACR White Paper guidelines (Uri, et al. JACR 2013; 10(10):789-94) suggest annual abdominal CT or MR follow-up. 2. Cholelithiasis with contracted gallbladder. No secondary signs of cholecystitis. 3. Fatty infiltration of the liver. 4. Diffuse colonic diverticulosis without discrete evidence of acute diverticulitis. Electronically Signed: Nloberto Cagle DO at 16:34 EDT ,
[2023-08-31 16:48] LABS: Reflex Troponin-HS? (from REC) Y
[2023-08-31 17:34] LABS: Troponin-I HS 7 pg/mL (3.0-78.0)
[2023-08-31 17:38] VITALS: BP 131/69; PULSE 72; RESP 15; O2SAT 96
== END 2023-08-31 17:39 | disposition home or self-care (01) ==
PROVIDERS: Nurse Practitioner; Emergency Provider Emergency Medicine; PCP Family Medicine; Visit Provider Emergency Medicine
DX: R10.13 Epigastric pain (principal); K21.9 Gastro-esophageal reflux disease without esophagitis; R10.11 Right upper quadrant pain; J45.909 Unspecified asthma, uncomplicated; R07.9 Chest pain, unspecified
CPT/HCPCS: 36415; 71045; 74176; 76705; 80053; 83690; 84484; 85025; 93005; 96360; 96361; 99283; J7030; A4216

== ENCOUNTER → 2024-01-13 | Outpatient (CLI) | payer MEDICARE, SELFPAY ==
[2024-01-13 15:08] LABS: Absolute Lymphocyte Count 1.38 X10^3/uL (0.83-4.51); Basophil# 0.02 X10^3/uL; Basophil% 0.2 % (0-1); Hematocrit 48.4 % (40-54); Hemoglobin 15.6 g/dL (13.0-16.5); Lymphocyte # 1.38 X10^3/ul (0.83-4.51); Lymphocyte % 10.8 % (19-41); Mean Corp Hgb Conc 32.2 g/dL (32-36); Mean Corpuscular Hgb 30.2 pg (27.0-32.0); Mean Corpuscular Volume 93.8 fL (80-94); Mean Platelet Vol. 11.9 fl (6.2-12.0); Monocyte# 0.29 X10^3/uL; Monocyte% 2.3 % (0-10); NRBC Flagged by Analyzer 0 % (0-5); Neutrophil # 11.04 X10^3/uL (2.7-7.7); Neutrophil % 86.1 % (47-70); Platelet Count 256 K/mm3 (150-450); RBC Distribution Width CV 13.4 % (11.6-14.6); RBC Distribution Width SD 46.5 fl (35.1-43.9); Red Blood Count 5.16 M/mm3 (4.6-6.2); White Blood Count 12.8 K/mm3 (4.4-11.0)
[2024-01-13 15:23] LABS: Vitamin D,25 Hydroxy 35.7 ng/mL
[2024-01-13 15:28] LABS: AST(SGOT) 16 U/L (15-37); Alanine Aminotransfer ALT/SGPT 27 U/L (16-61); Albumin, Serum 3.6 g/dL (3.2-5.0); Alkaline Phosphatase 71 U/L (45-117); Anion Gap 8 (5-15); BUN 16 mg/dL (7-18); BUN/Creat Ratio 14.3 RATIO (10-20); Calcium,Total 9.5 mg/dL (8.5-10.1); Chloride 110 mmol/L (98-107); Cholesterol 230 mg/dL (200); Creatinine, Serum 1.12 mg/dL (0.70-1.30); EST Glomerular Filtration Rate 69 mL/min (>60); Est Glom Filt Rate - Afr Amer 83 mL/min (>60); Globulin 3.6 g/dL (2.2-4.2); Glucose 211 mg/dL (74-106); High Density Lipoprotein 67 mg/dL; Protein, Total 7.2 g/dL (6.4-8.2); Sodium Level 138 mmol/L (136-145); Triglycerides 91 mg/dL; Very Low Density Lipoprotein 18 mg/dL (5-40)
== END | disposition home or self-care (01) ==
LOC: MFPLAB 11:32
PROVIDERS: PCP Family Medicine; Visit Provider Family Medicine
DX: E78.5 Hyperlipidemia, unspecified (principal); E55.9 Vitamin D deficiency, unspecified
CPT/HCPCS: 36415; 80053; 80061; 82306; 85025

== ENCOUNTER 2024-01-16 21:11 | Emergency (ER) | payer MEDICARE, SELFPAY ==
[2024-01-16 21:11] VITALS: BP 171/85; PULSE 55; RESP 16; TEMP 36.4; O2SAT 99; BMI 30.2
--- NOTE | 2024-01-16 21:16 | EDS_ITS ---
HPI HPI - GI History of Present Illness Chief Complaint: Abd Pain Informant: patient Abdominal Pain/Flank Pain Onset: Hours (2) Context: Sudden Onset Timing: Continuous Quality: Aching Location: Epigastric and - (Periumbilical) Worsened by: - (Laying flat) Relieved by: Nothing Nausea/Vomiting/Emesis GI Symptom: Positive for Nausea; Negative for Vomiting Onset: Hours (2) Diarrhea/Melena/Hematochezia GI Symptom: Positive for Diarrhea; Negative for Melena or Hematochezia Stool Quality: Positive for Loose Associated Symptoms Associated Symptoms: Negative for Dysuria, Frequency or Hematuria Narrative Narrative: Patient presents with abdominal pain and nausea that began 2 hours prior to arrival. Patient states it began rather suddenly. Patient denies any vomiting. Patient states his pain is over the epigastric and periumbilical area. Patient describes as aching. Patient states it has been constant for the past 2 hours. Patient states it is worse with laying flat. Patient states nothing seems to help with it. Patient admits to some diarrhea. Patient denies any melena or hematochezia. Patient denies any dysuria, frequency, or hematuria. Patient states he is on prednisone currently. [facility] Medical History (Updated 01/16/24 @ 23:[address] Juan Luis Montana, DO) Asthma Back pain COVID Diastasis recti GERD (gastroesophageal reflux disease) Hemorrhoid Renal calculi Screening for malignant neoplasm of intestine Umbilical hernia Home Medications albuterol sulfate 90 mcg/actuation breath activated powder inhaler 2 inh inhalation Q6H PRN wheezin 07/26/20 [History Last Taken Unknown] amoxicillin 500 mg capsule 500 mg PO TID 01/16/24 [History Last Taken Unknown] ibuprofen 800 mg tablet 800 mg PO Q8H 01/16/24 [History Last Taken Unknown] methylprednisolone 4 mg tablets in a dose pack 4 mg PO DAILY 01/16/24 [History Last Taken Unknown] omeprazole 20 mg capsule,delayed release 20 mg PO DAILY #30 CAPSULES 01/16/24 [Rx Last Taken Unknown] Allergy/AdvReac Type Severity Reaction Status Date / Time ciprofloxacin Allergy Intermediate rash, leg Verified 01/16/24 21:14 swelling povidone-iodine Allergy Intermediate rash, leg Verified 01/16/24 21:14 swelling Iodinated Contrast Media AdvReac Severe Swelling Verified 01/16/24 21:14 Family History (Updated 07/26/20 @ 10:16 by Iman Santiago) Father Heart disease Mother CVA (cerebral vascular accident) Surgical History History of colonoscopy (~2008) History of lithotripsy history of peripheral stent placement Social History Smoking Status: Never smoker ROS ROS ED Constitutional Constitutional ED: Denies chills or fever(s) Eyes Eyes: Denies blurry vision or change in vision ENT ENT ED: Denies rhinorrhea or sore throat Cardiovascular Cardiovascular: Denies chest pain or palpitations Respiratory/Chest Respiratory/Chest: Denies cough or dyspnea Gastrointestinal Gastrointestinal: Reports abdominal pain, diarrhea and nausea; Denies melena or vomiting Genitourinary Genitourinary ED: Denies dysuria or hematuria Musculoskeletal Musculoskeletal: Denies back pain or neck pain Integumentary Denies abscess or rash Neurologic Neurologic: Denies headache(s) or weakness Allergic/Immunologic Allergic/Immunologic ED: Denies mouth swelling or urticaria EXAM Physical Exam Const Vital Signs: 01/16/24 21:11 01/16/24 21:31 01/16/24 23:11 Temperature 97.6 F L 97.5 F L Temperature Source Temporal Oral Pulse Rate 55 L 52 L 49 L Respiratory Rate 16 14 14 Blood Pressure 171/85 H 170/91 H 154/82 H Blood Pressure Mean 113 117 106 Pulse Ox 99 98 97 Oxygen Delivery Method Room Air Room Air Room Air 01/17/24 00:03 Temperature 97.5 F L Temperature Source Pulse Rate 48 L Respiratory Rate 16 Blood Pressure 160/87 H Blood Pressure Mean 111 Pulse Ox 96 Oxygen Delivery Method Positive well nourished and well developed General Appearance ED: well developed and NAD HEENT Reports moist mucous membranes Neck supple and no JVD Resp normal respiratory effort and clear to auscultation bilaterally Cardio regular rhythm Rate: bradycardia GI non-distended Palpation: soft and tender epigastric and periumbilical; Negative for guarding or rebound tenderness present Neuro CN's II-XII intact bilaterally, moves all extremities and no sensory deficits noted Sensorium / Orientation: alert, oriented to person, oriented to place and oriented to time Motor Exam: strength 5/5 throughout Psych mental status grossly normal MDM MDM MDM Narrative Medical decision making narrative: Differential diagnosis includes gastritis, gastroesophageal reflux disease, pancreatitis, viral infection, and hypertension. CBC will be obtained to assess for leukocytosis and anemia. Comprehensive metabolic profile will be obtained to assess for hepatic function, renal function, and electrolyte abnormality. Lipase will be obtained to assess for pancreatitis. COVID-19, influenza, and RSV PCR will be obtained to assess for viral infection. Lab Data Attestation: I reviewed the patient's lab results. Lab results narrative: CBC was reviewed. There is a slight leukocytosis of 12.7. Remainder is within normal limits. Comprehensive metabolic profile was reviewed and was within normal limits. Lipase was reviewed and was normal at 50. COVID-19 PCR was reviewed and was negative. Influenza PCR was reviewed and was negative for influenza A and influenza B. RSV PCR was reviewed and was negative. Labs: Laboratory Results - last 24 hr 01/16/24 21:37 WBC 12.7 H RBC 4.92 Hgb 16.1 Hct 45.9 MCV 93.3 MCH 32.7 H MCHC 35.1 D RDW Std Deviation 46.2 H RDW Coeff of Kaylie 13.6 Plt Count 316 MPV 11.3 Immature Gran % (Auto) 0.500 Neut % (Auto) 56.0 Lymph % (Auto) 32.7 [place] % (Auto) 9.7 Eos % (Auto) 0.9 Baso % (Auto) 0.2 Absolute Neuts (auto) 7.1 Absolute Lymphs (auto) 4.16 Nucleated RBC % 0 Sodium 142 Potassium 3.7 Chloride 112 H Carbon Dioxide 27.0 Anion Gap 3 L BUN 16 Creatinine 1.03 Estim Creat Clear Calc 70.50 Est GFR (MDRD) Af Amer 92 Est GFR (MDRD) Non-Af 76 BUN/Creatinine Ratio 15.5 Glucose 105 Calcium 9.3 Total Bilirubin 0.50 AST 15 ALT 26 Alkaline Phosphatase 79 Total Protein 6.8 Albumin 3.5 Globulin 3.3 Albumin/Globulin Ratio 1.1 Lipase 50 Treatment and Re-Evaluation :: Patient was given a GI cocktail. Patient vomited this back up. Patient was given a dose of morphine and Zofran. Patient's blood pressure improved to 154/82. Patient was sleeping on reevaluation. Patient was advised of his findings. Patient was advised that this is most likely gastritis. It could be related to his prednisone or ibuprofen. Patient was instructed to eat a bland diet. Patient was instructed to stop taking ibuprofen and switch to Tylenol. Patient was given a prescription for omeprazole. Patient was instructed to follow-up with his primary care physician in 5 to 7 days for further evaluation. Patient understood and was agreeable with the plan. All questions were answered. Prior to discharge, patient had another episode of vomiting. Patient was given a dose of Phenergan. Patient will be given a repeat p.o. fluid challenge. Patient was eligible to tolerate p.o. fluids and was able to be discharged home. Discharge Plan Triage Chief Complaint: Abd Pain ED Provider: Juan Luis Montana Dx/Rx/DC Orders Clinical Impression: Gastritis, Abdominal pain Instructions: ED Gastritis (Adult), ED Abdominal Pain Unkn Cause Male... Prescriptions: New omeprazole [omeprazole] 20 mg capsule,delayed release(DR/EC) 20 mg PO DAILY Qty: 30 0RF No Action albuterol sulfate 90 mcg/actuation aerosol powdr breath activated 2 inh INHALATION Q6H PRN (Reason: wheezin) amoxicillin 500 mg capsule 500 mg PO TID Patient Comments: TAKE 1 CAPSULE BY MOUTH 3 TIMES A DAY FOR 7 DAYS ibuprofen 800 mg tablet 800 mg PO Q8H Patient Comments: TAKE 1 TABLET BY MOUTH EVERY 8 HOURS NEEDED FOR PAIN methylprednisolone 4 mg tablets,dose pack 4 mg PO DAILY Patient Comments: TAKE 1 ROW OF TABLETS BY MOUTH EACH DAY INSTRUCTED ON THE PACKAGE Primary Care Provider: Sigifredo Puentes Referrals: Sigifredo Puentes MD [Primary Care Provider] - 5-7 Days Disposition Disposition: Home, Self Care
[2024-01-16 21:31] VITALS: BP 170/91; PULSE 52; RESP 14; O2SAT 98
[2024-01-16] MEDS: Mag Hydrox/Al Hydrox/Simeth 30 ML UDC PO (21:43)
[2024-01-16 21:46] LABS: Absolute Lymphocyte Count 4.16 X10^3/uL (0.83-4.51); Absolute Neutrophil Count 7.1 X10^3/uL (2.0-7.7); Basophil# 0.03 X10^3/uL; Basophil% 0.2 % (0-1); Eosinophil# 0.11 X10^3/uL; Eosinophils% 0.9 % (0-5); Hematocrit 45.9 % (40-54); Hemoglobin 16.1 g/dL (13.0-16.5); Lymphocyte # 4.16 X10^3/ul (0.83-4.51); Lymphocyte % 32.7 % (19-41); Mean Corp Hgb Conc 35.1 g/dL (32-36); Mean Corpuscular Hgb 32.7 pg (27.0-32.0); Mean Corpuscular Volume 93.3 fL (80-94); Mean Platelet Vol. 11.3 fl (6.2-12.0); Monocyte# 1.23 X10^3/uL; Monocyte% 9.7 % (0-10); NRBC Flagged by Analyzer 0 % (0-5); Neutrophil # 7.14 X10^3/uL (2.7-7.7); Platelet Count 316 K/mm3 (150-450); RBC Distribution Width CV 13.6 % (11.6-14.6); RBC Distribution Width SD 46.2 fl (35.1-43.9); Red Blood Count 4.92 M/mm3 (4.6-6.2); White Blood Count 12.7 K/mm3 (4.4-11.0)
[2024-01-16] MEDS: Ondansetron 4 MG/2 ML Vial IV (21:54)
[2024-01-16 22:07] LABS: ALB/GLOB Ratio 1.1 RATIO (0.9-2.4); AST(SGOT) 15 U/L (15-37); Alanine Aminotransfer ALT/SGPT 26 U/L (16-61); Albumin, Serum 3.5 g/dL (3.2-5.0); Alkaline Phosphatase 79 U/L (45-117); Anion Gap 3 (5-15); BUN 16 mg/dL (7-18); BUN/Creat Ratio 15.5 RATIO (10-20); Calcium,Total 9.3 mg/dL (8.5-10.1); Chloride 112 mmol/L (98-107); Creatinine, Serum 1.03 mg/dL (0.70-1.30); EST Glomerular Filtration Rate 76 mL/min (>60); Est Glom Filt Rate - Afr Amer 92 mL/min (>60); Globulin 3.3 g/dL (2.2-4.2); Glucose 105 mg/dL (74-106); Lipase 50 U/L (13-75); Potassium 3.7 mmol/L (3.5-5.1); Protein, Total 6.8 g/dL (6.4-8.2); Sodium Level 142 mmol/L (136-145)
[2024-01-16] MEDS: Morphine 4 MG/ML Syringe IV (22:48)
[2024-01-16 23:11] VITALS: BP 154/82; PULSE 49; RESP 14; TEMP 36.4; O2SAT 97
[2024-01-17] MEDS: proMETHazine 25 MG/ML Syringe 6.25 MG IM
[2024-01-17 00:03] VITALS: BP 160/87; PULSE 48; RESP 16; TEMP 36.4; O2SAT 96
== END 2024-01-17 00:39 | disposition home or self-care (01) ==
PROVIDERS: Emergency Provider Emergency Medicine; PCP Family Medicine; Visit Provider Emergency Medicine
DX: K29.70 Gastritis, unspecified, without bleeding (principal); K21.9 Gastro-esophageal reflux disease without esophagitis; J45.909 Unspecified asthma, uncomplicated; R10.33 Periumbilical pain; R10.13 Epigastric pain; Z11.52 Encounter for screening for COVID-19; Z79.899 Other long term (current) drug therapy
CPT/HCPCS: 80053; 83690; 85025; 87631; 96372; 96374; 96375; 99284; A4216; J2405

== ENCOUNTER → 2024-01-20 | Outpatient (CLI) | payer MEDICARE, SELFPAY ==
--- NOTE | 2024-01-20 13:27 | RAD_ITS ---
STUDY: X-RAY - ABDOMEN/PELVIS REASON FOR EXAM: Male, 68 years old. Evaluate for constipation. TECHNIQUE: Single AP view of the abdomen / pelvis on 4 images. COMPARISON: None. FINDINGS: Mild hyperinflation of the lungs. Normal bowel gas pattern with air seen to the rectosigmoid. Moderate amount of feces in the colon. The visualized liver, spleen and kidneys are grossly normal in size and morphology. Normal soft tissue structures. Normal visualized osseous structures. RAD/Abd Inc Decub and/or Erect IMPRESSION: Moderate amount of feces in the colon. No acute abnormality. Electronically Signed: Joe Petersen MD at 15:51 EST ,
== END | disposition home or self-care (01) ==
PROVIDERS: PCP Family Medicine; Referring Provider Family Medicine; Visit Provider Family Medicine
DX: K59.00 Constipation, unspecified (principal)
CPT/HCPCS: 74019

== ENCOUNTER → 2024-01-23 | Outpatient (CLI) | payer MEDICARE, SELFPAY ==
--- NOTE | 2024-01-23 09:59 | US_ITS ---
STUDY: ABDOMINAL ULTRASOUND - RIGHT UPPER QUADRANT REASON FOR VISIT: Male, 68 years old RUQ PAIN TECHNIQUE: Ultrasound evaluation of the right upper quadrant was performed with real-time and static portillo-scale imaging. TECHNICAL QUALITY: Adequate. COMPARISON: 08/31/2023 FINDINGS: Liver: The liver measures 17.4 cm. There is increased echogenicity consistent with fatty infiltration. The bile ducts are within normal limits. There is hepatic color flow. The direction of portal flow is hepatopetal. 4 cm septated cyst in the right lobe of the liver. Another 1 cm cyst in the right lobe of the liver. Hypoechoic area adjacent to the gallbladder consistent with some focal sparing. Gallbladder: Normal distended gallbladder. The gallbladder wall measures 3 mm. There is a negative sonographic Biggs''s sign. There is no pericholecystic fluid. There are multiple echogenic structures within the gallbladder, consistent with multiple gallstones. Common Bile Duct (C.B.D.): The common bile duct measures 3 mm. Pancreas: Normal size of the head, body and tail of the pancreas. There is normal echogenicity of the pancreas. There is no demonstrated pancreatic mass or cyst. Right Kidney: Normal size of the right kidney. The right kidney measures 10.8 cm. Normal renal cortex. The right cortex measures 1.2 cm. 2 cm cyst in the upper pole the right kidney. There is no right hydronephrosis. US/Abdomen Limited IMPRESSION: 1. Possible acute or chronic cholecystitis with cholelithiasis and gallbladder wall thickening. Clinical correlation is recommended. 2. Fatty infiltration of the liver. Electronically Signed: Deacon Elmore MD at 23:13 EST ,
== END | disposition home or self-care (01) ==
LOC: US 09:56
PROVIDERS: PCP Family Medicine; Referring Provider Family Medicine; Visit Provider Family Medicine
DX: R10.11 Right upper quadrant pain (principal)
CPT/HCPCS: 76705

== ENCOUNTER 2024-08-09 16:12 | Emergency (ER) | payer MEDICARE, SELFPAY ==
[2024-08-09 16:14] VITALS: BP 121/80; PULSE 74; RESP 16; TEMP 36.4; O2SAT 100
[2024-08-09 16:15] VITALS: BP 112/75; PULSE 69; RESP 16; TEMP 36.9; O2SAT 99; BMI 25.7
[2024-08-09 17:15] VITALS: BP 106/71; PULSE 78; RESP 16; TEMP 36.5; O2SAT 98
--- NOTE | 2024-08-09 17:44 | ED.RN ---
PT HAD GALLBLADDER SURGERY 8 DAYS AGO WITH A STENT PLACED AND A DRAINAGE TUBE. PT SAID HIS HELPED HIM WITH THE BANDAGE TODAY AND WHEN HE WENT TO BATHROOM LATER HE NOTICED HE WAS BLEEDING AND THOUGHT THE BAG GOT CUT HE SAID HE CAN'T SEE DOWN THERE HE HAS HIS FRIENDS WHO BROUGHT HIM HERE TODAY. DENIES ANY PAIN AT THIS TIME.
[2024-08-09 18:00] VITALS: BP 106/71; PULSE 78; RESP 16; TEMP 36.5; O2SAT 98
[2024-08-09 18:13] VITALS: BP 132/87; PULSE 74; RESP 16; O2SAT 97
--- NOTE | 2024-08-09 18:39 | EX.ED.DYSGE1 ---
HPI History of Present Illness Chief Complaint: Wound Check Informant: patient Narrative Narrative: Patient here with neighbors for evaluation. 8-day postop open cholecystectomy with drain tube at [facility] by Dr. Berry. He was admitted July 25 for what he explains choledocholithiasis with jaundice. An ERCP with a stent placement. He had surgery 8 days ago for cholecystectomy and that being open. Drain tube was placed. He has been home for 5 days. Today changed his dressing before going to work. States shortly afterwards increased bloody drainage. He is concerned may be spouse cut the tube or his skin. He is not on any blood thinners. Denies any fevers or chills. He is still postop partial colectomy secondary to complicated diverticulitis May 12. There was no ostomy bag was reanastomosed. He explained a skin infection for which she end up being treated with what sounds like Zyvox for 6 days in the hospital. There is no blood infection per the patient. He denies any increasing pain or distention of the abdomen. PFSH PFSH Medical History COVID Diastasis recti Umbilical hernia Screening for malignant neoplasm of intestine Renal calculi Back pain Hemorrhoid GERD (gastroesophageal reflux disease) Asthma Home Medications ?Medication ?Instructions ?Recorded ?Last Taken ?Type albuterol sulfate 90 mcg/actuation 2 inh inhalation Q6H PRN wheezin 07/26/20 Unknown History breath activated powder inhaler amoxicillin 500 mg capsule 500 mg PO TID 01/16/24 Unknown History ibuprofen 800 mg tablet 800 mg PO Q8H 01/16/24 Unknown History methylprednisolone 4 mg tablets in 4 mg PO DAILY 01/16/24 Unknown History a dose pack omeprazole 20 mg capsule,delayed 20 mg PO DAILY #30 CAPSULES 01/16/24 Unknown Rx release Allergy/AdvReac Type Severity Reaction Status Date / Time ciprofloxacin Allergy Intermediate rash, leg Verified 08/09/24 17:46 swelling povidone-iodine Allergy Intermediate rash, leg Verified 08/09/24 17:46 swelling Iodinated Contrast Media AdvReac Severe Swelling Verified 08/09/24 17:46 Family History Father Heart disease Gallbladder calculus Mother CVA (cerebral vascular accident) Surgical History History of colonoscopy (~2008) history of peripheral stent placement History of lithotripsy Social History Smoking Status: Never smoker ROS ROS ED Constitutional Constitutional ED: Denies chills, fever(s) or sweats Eyes Eyes: Denies change in vision ENT ENT ED: Denies dysphagia or sore throat Cardiovascular Cardiovascular: Denies chest pain, leg edema, palpitations or racing heartbeat Respiratory/Chest Respiratory/Chest: Denies cough, dyspnea or dyspnea on exertion Gastrointestinal Gastrointestinal: Denies abdominal pain, diarrhea, nausea or vomiting Genitourinary Genitourinary ED: Denies dysuria, hematuria or urinary frequency Musculoskeletal Musculoskeletal: Denies back pain, extremity pain or neck pain Integumentary Reports wounds; Denies rash Neurologic Neurologic: Denies headache(s), paresthesias or weakness EXAM Physical Exam Const Vital Signs: 08/09/24 16:14 08/09/24 16:15 08/09/24 17:15 Temperature 97.5 F L 98.4 F 97.7 F L Temperature Source Temporal Oral Temporal Pulse Rate 74 69 78 Respiratory Rate 16 16 16 Blood Pressure 121/80 H 112/75 106/71 Blood Pressure Mean 93 87 82 Pulse Ox 100 99 98 Oxygen Delivery Method Room Air Room Air Room Air 08/09/24 18:00 08/09/24 18:13 08/09/24 19:02 Temperature 97.7 F L 97.6 F L Temperature Source Temporal Pulse Rate 78 74 98 Respiratory Rate 16 16 16 Blood Pressure 106/71 132/87 H 116/73 Blood Pressure Mean 82 102 87 Pulse Ox 98 97 98 Oxygen Delivery Method Room Air Room Air Positive well nourished and well developed Constitutional Narrative: Nontoxic General Appearance ED: well developed and NAD HEENT Reports moist mucous membranes normocephalic and atraumatic Eyes EOMs intact bilaterally and conjunctivae normal General Eye ED: Yes normal appearance of both eyes Neck no lymphadenopathy and supple General: Negative for tenderness Chest Wall Chest: Negative for tenderness Resp normal respiratory effort and normal air movement Effort and Inspection: symmetric chest movement; Negative for respiratory distress Cardio regular rate, regular rhythm and no murmurs Peripheral Pulses: pulses 2+ throughout GI normal to inspection, nondistended, normoactive bowel sounds and non-tender GI Narrative: Dressing to the right upper quadrant there was bloody drainage. This was removed, appeared to be some thick serosanguineous drainage on the right side lower incision that was draining out. JAEL drain clean, dry, intact. No abdominal pain or distention. Lower mid abdomen incision clean, dry, intact. Palpation: Negative for guarding or rebound tenderness present Back/Spine no CVA tenderness and no thoracic nor lumbar tenderness Extremity normal to inspection General Extremety ED: Negative for edema or tenderness General Extremity: Negative for edema Neuro oriented x3 and no sensory deficits noted Sensorium / Orientation: awake and alert Skin no rashes or lesions noted and no wounds MDM MDM MDM Narrative Medical decision making narrative: Interventions / MDM: Differential diagnosis: Postop drainage, postop open cholecystectomy with drain tube Diagnosis considered but do not suspect: No clinical infectious symptoms My EKG interpretation: N/A Imaging independently reviewed and interpreted by myself: N/A External documents reviewed: N/A Test considered but not ordered:N/A ED course: Patient with drainage from his wound site with marissa. They serosanguineous drainage. Plan for abdominal labs and CT scan for further evaluation. 1850: Ordered for wound cultures with plan ChloraPrep. Nursing ChloraPrep however try to express there is nothing came out. I came back and try to reexpress it was just slight bloody discharge there is no thickening discharge left. Likely a small pocket that is now draining out. Discussed with patient can further check out with CT and labs however he declines at this time. He is nontoxic no fevers or chills. He has appointment with his surgeon tomorrow. This wound was redressed. He will keep the appointment tomorrow. Return precautions. Re-evaluation: stable Disposition discussed with patient/family/significant other: Patient Case discussed with consulting clinician: N/A This note was generated with [employer] dictation software. It may contain incorrect words, spelling, and punctuation that were not noted in checking the note before signing. Discharge Plan Triage Chief Complaint: Wound Check ED Provider: Abel Kim Dx/Rx/DC Orders Clinical Impression: Post-op bleeding, Status post cholecystectomy Instructions: ED Post Op Wound Check, General Prescriptions: No Action albuterol sulfate 90 mcg/actuation aerosol powdr breath activated 2 inh INHALATION Q6H PRN (Reason: wheezin) amoxicillin 500 mg capsule 500 mg PO TID Patient Comments: TAKE 1 CAPSULE BY MOUTH 3 TIMES A DAY FOR 7 DAYS ibuprofen 800 mg tablet 800 mg PO Q8H Patient Comments: TAKE 1 TABLET BY MOUTH EVERY 8 HOURS NEEDED FOR PAIN methylprednisolone 4 mg tablets,dose pack 4 mg PO DAILY Patient Comments: TAKE 1 ROW OF TABLETS BY MOUTH EACH DAY INSTRUCTED ON THE PACKAGE omeprazole [omeprazole] 20 mg capsule,delayed release(DR/EC) 20 mg PO DAILY Qty: 30 0RF Primary Care Provider: Sigifredo Puentes Referrals: Sigifredo Puentes MD [Primary Care Provider] - Activity Restrictions/Additional Instructions: You had drainage from the wound site that resolved and was unable to express further. Monitor for fevers or chills. Keep her follow-up with your surgeon tomorrow. Print Language: Macedonian Disposition Disposition: Home, Self Care Discharge Date/Time: 08/09/24 19:26
[2024-08-09 19:02] VITALS: BP 116/73; PULSE 98; RESP 16; TEMP 36.4; O2SAT 98
== END 2024-08-09 19:26 | disposition home or self-care (01) ==
PROVIDERS: Emergency Provider Emergency Medicine; PCP Family Medicine; Visit Provider Emergency Medicine
DX: Z48.01 Encounter for change or removal of surgical wound dressing (principal); Z90.49 Acquired absence of other specified parts of digestive tract; Z86.16 Personal history of COVID-19
CPT/HCPCS: 99282